=== PATIENT | female | born 1960 | race Caucasian/White ===

== ENCOUNTER 2018-01-06 12:02 | Day surgery (SDC) | payer BC ==
[2018-01-03 09:55] VITALS: BMI 22.5
[2018-01-06] MEDS ORDERED: PROPOFOL 200 MG/20 ML VIAL ONE (12:12)
--- NOTE | 2018-01-06 17:03 | OP ---
DATE OF PROCEDURE: 01/06/2018 PROCEDURE: Colonoscopy with fecal microbiota transplant. PHYSICIAN: Xavi Medina M.D. ANESTHESIA: Pain medications given by Anesthesiology Department. PREOPERATIVE DIAGNOSIS: Recurrent Clostridium difficile colitis. POSTOPERATIVE DIAGNOSES: 1. Visually normal colonoscopy on the way. 2. Status post installation of 600 mL of stool with fluid extract. PROCEDURE IN DETAIL: A written consent was obtained prior to procedure. After good sedation, rectal exam was performed and was normal. Endoscope was advanced to the cecum. No obvious mucosal abnorma lity was seen on the way. A total of 600 mL of fecal effluent from donor was instilled throughout th e colon. The patient had good retention. She tolerated procedure well without any complication. 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 PLAN: Follow up in office in 1 month.
== END 2018-01-06 15:00 | disposition home or self-care (01) ==
LOC: SDC 12:02
PROVIDERS: ATTEND Internal Medicine Gastroenterology
PROC: 3E0H8GC Introduction of Other Therapeutic Substance into Lower GI, Via Natural or Artificial Opening Endoscopic (ICD-10-PCS; principal; 2018-01-06)
DX: A04.71 Enterocolitis due to Clostridium difficile, recurrent (principal); Z79.2 Long term (current) use of antibiotics; Z88.5 Allergy status to narcotic agent; Z88.1 Allergy status to other antibiotic agents; Z88.2 Allergy status to sulfonamides; Z91.011 Allergy to milk products
CPT/HCPCS: J2704